=== PATIENT | male | born 1935 | race Caucasian/White ===

== ENCOUNTER 2016-08-02 16:29 | Inpatient (IN) | payer OTHER ==
[~2016-08-02] VITALS: Ht 170.2 cm; Wt 73.0 kg
[~2016-08-02 16:29] MED LIST: ALLOPURINOL100 MG PO; ALLOPURINOL300 MG PO; AMLODIPINE BESY10 MG PO; ASPIR 8181 M1 PO; CALCITRIOL0.25 MCG PO; CIPRO750 MG PO; CONSTULOSE10 GM/15 M PO; COREG12.5 M1 PO; COREG25 M1 PO; DIALYVITE TABL1 EACH PO; GENTAMICIN SULF30 GM TP; HEPARIN PD; IMDUR120 MG PO; IMDUR30 MG PO; IMDUR60 MG PO; LIPITOR40 MG PO; MULTI-DAY PLUS1 EACH PO; NIFEDICAL XL60 MG PO; NORCO 5/3251 TABLET PO; OMEPRAZOLE20 MG PO; OSTERA TABLET1 EACH PO; PROBIOTIC1 EAC1 PO; SENNA PLUS TAB1 EACH PO; SENNA8.6 MG PO; ST. JOSEPH ASPI81 MG PO; SYNTHROID100 MCG PO; SYNTHROID25 MCG PO; SYNTHROID50 MCG PO; VALSARTAN80 MG PO; VELPHORO500 MG PO; VITAMIN D2000 UNIT PO; XANAX0.25 MG PO; ZOLOFT100 MG PO
[2016-08-02 17:35] LABS: HEMATOCRIT 24.6 % (38.0-50.0); MCH 30.9 PG (29.0-34.0); MCHC 32.5 G/DL (30.0-36.0); MEAN PLAT.VOLUME 10.2 uM^3 (9.0-12.4); PLATELET COUNT 100 K/uL (156-360); RBC DIS.WIDTH-CV 16.1 % (11.8-14.6); RBC DIS.WIDTH-SD 52.3 % (39-53); RED BLOOD COUNT 2.59 M/uL (4.00-5.50)
[2016-08-02 17:46] LABS: CHLORIDE 102 mEq/L (99-109); POTASSIUM 4.9 mEq/L (3.7-5.4); SODIUM 138 mEq/L (136-147)
[2016-08-02 17:47] LABS: GLUCOSE 106 mg/dL (70-99)
[2016-08-02 17:49] LABS: ANION GAP 15 MEQ/L (2-14)
[2016-08-02 17:51] LABS: GFR ESTIMATE (CALCULATED) 5 mL/min/
[2016-08-02 17:52] LABS: UREA NITROGEN (BUN) 72 mg/dL (9-23)
[2016-08-02 17:56] LABS: TROP-I INTERPRETATION NEGATIVE; TROPONIN-I 0.03 ng/mL (0.0-0.30)
[2016-08-02 19:44] LABS: ADD MIUA? YES; BILIRUBIN NEGATIVE; BLOOD SMALL; COLOR YELLOW ((YELLOW)); GLUCOSE (STRIP) NEGATIVE; KETONES NEGATIVE; LEUKOCYTES NEGATIVE; NITRITE NEGATIVE; PH, URINE 6.5 (5-8); PROTEIN (STRIP) >=300; SPECIFIC GRAVITY 1.009 (1.000-1.030); UROBILINOGEN 0.2 MG/DL (0.2-1.0)
[2016-08-02 20:06] LABS: BACTERIA NONE SEEN; CASTS NONE SEEN /LPF; CRYSTALS NONE SEEN; EPITHELIAL CELLS RARE; MUCUS NONE SEEN; PATHOLOGICAL CAST NONE SEEN; SMALL ROUND CELL NONE SEEN; UCUL ADDED? NO; WHITE BLOOD CELLS 0-5 /HPF (0-5); YEAST-LIKE CELL NONE SEEN
[2016-08-02 21:42] LABS: SAMPLE HEMOLYSIS CHECK 0; SAMPLE ICTERIC CHECK 0; SAMPLE LIPEMIA CHECK 0
[2016-08-02 22:20] VITALS: BP 132/60
[2016-08-03] LABS: TROP-I INTERPRETATION NEGATIVE; TROPONIN-I 0.03 ng/mL (0.0-0.30)
[2016-08-03 03:17] VITALS: BP 141/67
[2016-08-03 05:35] LABS: HEMATOCRIT 23.3 % (38.0-50.0); MCH 31.2 PG (29.0-34.0); MCV 94.3 FL (86-99); MEAN PLAT.VOLUME 8.9 uM^3 (9.0-12.4); PLATELET COUNT 90 K/uL (156-360); RBC DIS.WIDTH-CV 16.3 % (11.8-14.6); RBC DIS.WIDTH-SD 56.4 % (39-53); RED BLOOD COUNT 2.47 M/uL (4.00-5.50); WHITE BLOOD COUNT 2.8 K/uL (4.1-10.2)
[2016-08-03 06:00] LABS: ALKALINE PHOSPHATASE 36 IU/L (3-129); ANION GAP 15 MEQ/L (2-14); CHLORIDE 103 MEQ/L (99-109); GFR ESTIMATE (CALCULATED) 6 mL/min/; GLUCOSE 99 mg/dL (70-99); POTASSIUM 4.5 MEQ/L (3.7-5.4); SAMPLE HEMOLYSIS CHECK 0; SAMPLE ICTERIC CHECK 0; SAMPLE LIPEMIA CHECK 2; SODIUM 141 MEQ/L (136-147); TOTAL BILIRUBIN 0.2 MG/DL (0.0-1.0); UREA NITROGEN (BUN) 65 mg/dL (9-23)
[2016-08-03 06:06] LABS: TROP-I INTERPRETATION NEGATIVE; TROPONIN-I 0.03 ng/mL (0.0-0.30)
[2016-08-03 07:49] VITALS: BP 158/75
[2016-08-03 22:38] VITALS: BP 156/66
[2016-08-04 05:58] LABS: EOSINOPHIL (%) 5.3 % (0-5); EOSINOPHIL COUNT 0.2 K/uL (0-0.3); IMMATURE GRANULOCYTE (%) 0.8 % (0.0-0.7); MCH 31.1 PG (29.0-34.0); MCV 94.3 FL (86-99); MEAN PLAT.VOLUME 9.8 uM^3 (9.0-12.4); MONOCYTE (%) 8.3 % (3-12); MONOCYTE COUNT 0.3 K/uL (0-0.8); NEUTROPHIL (%) 58.4 % (45-76); NEUTROPHIL COUNT 2.2 K/uL (1.8-6.4); PLATELET COUNT 83 K/uL (156-360); RBC DIS.WIDTH-CV 16.2 % (11.8-14.6); RBC DIS.WIDTH-SD 55.9 % (39-53); RED BLOOD COUNT 2.44 M/uL (4.00-5.50)
[2016-08-04 05:59] LABS: WHITE BLOOD COUNT 3.8 K/uL (4.1-10.2)
[2016-08-04 06:32] LABS: ANION GAP 13 MEQ/L (2-14); CHLORIDE 101 MEQ/L (99-109); GFR ESTIMATE (CALCULATED) 6 mL/min/; GLUCOSE 89 mg/dL (70-99); POTASSIUM 3.9 MEQ/L (3.7-5.4); SAMPLE HEMOLYSIS CHECK 0; SAMPLE ICTERIC CHECK 0; SAMPLE LIPEMIA CHECK 0; SODIUM 138 MEQ/L (136-147); UREA NITROGEN (BUN) 62 mg/dL (9-23)
[2016-08-04 07:57] VITALS: BP 135/73
[2016-08-04 11:04] LABS: ADD MIUA? YES; BILIRUBIN NEGATIVE; BLOOD LARGE; COLOR YELLOW ((YELLOW)); GLUCOSE (STRIP) NEGATIVE; KETONES NEGATIVE; LEUKOCYTES LARGE; NITRITE NEGATIVE; PH, URINE 7.5 (5-8); PROTEIN (STRIP) >=300; UROBILINOGEN 0.2 MG/DL (0.2-1.0)
[2016-08-04 11:49] LABS: SPECIFIC GRAVITY 1.009 (1.000-1.030)
[2016-08-04 13:43] LABS: BACTERIA 1+; CASTS NONE SEEN /LPF; CRYSTALS NONE SEEN; EPITHELIAL CELLS RARE; MUCUS NONE SEEN; WHITE BLOOD CELLS TNTC /HPF (0-5)
[2016-08-04 13:43] LABS: C DIFF TOXIN NEGATIVE (NEGATIVE)
[2016-08-04 13:45] LABS: PROBE CHECK PASS; SPECIMEN PROCESSING CONTROL PASS
[2016-08-04 17:07] VITALS: BP 140/64
[2016-08-04] MEDS ORDERED: CATAPRES-TTS 11 EACH TD (17:51)
[2016-08-04] MEDS ORDERED: VALSARTAN160 MG PO (17:52)
[2016-08-04] MEDS ORDERED: VELPHORO500 MG PO (17:54)
[2016-08-04] MEDS ORDERED: NORVASC10 MG PO (17:59)
[2016-08-04 22:38] VITALS: BP 158/83
[2016-08-05 06:24] LABS: HEMATOCRIT 23.3 % (38.0-50.0); MCH 30.8 PG (29.0-34.0); MCHC 32.6 G/DL (30.0-36.0); MCV 94.3 FL (86-99); MEAN PLAT.VOLUME 9.8 uM^3 (9.0-12.4); NRBC (%) 0.4 /100 WBC (0-0); PLATELET COUNT 101 K/uL (156-360); RBC DIS.WIDTH-CV 16.3 % (11.8-14.6); RBC DIS.WIDTH-SD 56.4 % (39-53); RED BLOOD COUNT 2.47 M/uL (4.00-5.50); WHITE BLOOD COUNT 4.8 K/uL (4.1-10.2)
[2016-08-05 06:35] LABS: EOSINOPHIL (%) 3.5 % (0-5); EOSINOPHIL COUNT 0.2 K/uL (0-0.3); IMMATURE GRANULOCYTE COUNT 0.1 K/uL; LYMPHOCYTE COUNT 1.2 K/uL (1.0-2.8); MONOCYTE (%) 7.7 % (3-12); MONOCYTE COUNT 0.4 K/uL (0-0.8); NEUTROPHIL (%) 62.5 % (45-76)
[2016-08-05 06:53] LABS: ANION GAP 13 MEQ/L (2-14); CHLORIDE 98 MEQ/L (99-109); GFR ESTIMATE (CALCULATED) 6 mL/min/; GLUCOSE 96 mg/dL (70-99); POTASSIUM 3.7 MEQ/L (3.7-5.4); SAMPLE HEMOLYSIS CHECK 0; SAMPLE ICTERIC CHECK 0; SAMPLE LIPEMIA CHECK 0; SODIUM 137 MEQ/L (136-147); UREA NITROGEN (BUN) 56 mg/dL (9-23)
[2016-08-05 08:46] VITALS: BP 161/72
[2016-08-05 13:55] LABS: INTERNAL CONTROL VALID? YES
[2016-08-05 16:07] VITALS: BP 166/77
[2016-08-05 20:09] VITALS: BP 145/78
[2016-08-05 22:14] VITALS: BP 159/70
[2016-08-05 23:35] VITALS: BP 140/80
[2016-08-06 06:38] LABS: ABSOLUTE RETICULOCYTE CT. 0.06 M/uL (0.02-0.08); IMM.RETIC FRACTION 33.9 % (3-19); RETIC HGB EQUIVALENT 26.3 (28-36); RETICULOCYTE COUNT 2.5 % (0.5-1.8)
[2016-08-06 07:03] LABS: ANION GAP 11 MEQ/L (2-14); C-REACTIVE PROTEIN 41.9 MG/L (0-10); CHLORIDE 99 MEQ/L (99-109); GFR ESTIMATE (CALCULATED) 7 mL/min/; GLUCOSE 118 mg/dL (70-99); POTASSIUM 3.6 MEQ/L (3.7-5.4); SAMPLE HEMOLYSIS CHECK 0; SAMPLE ICTERIC CHECK 0; SAMPLE LIPEMIA CHECK 0; SODIUM 138 MEQ/L (136-147); UREA NITROGEN (BUN) 46 mg/dL (9-23)
[2016-08-06 07:55] VITALS: BP 158/64
[2016-08-06 16:18] VITALS: BP 167/80
[2016-08-06 23:05] VITALS: BP 150/52
[2016-08-07 08:00] VITALS: BP 140/68
[2016-08-07 08:59] LABS: HEMATOCRIT 23.3 % (38.0-50.0); MCHC 32.6 G/DL (30.0-36.0); MCV 95.1 FL (86-99); MEAN PLAT.VOLUME 10.4 uM^3 (9.0-12.4); PLATELET COUNT 120 K/uL (156-360); RBC DIS.WIDTH-CV 16.1 % (11.8-14.6); RBC DIS.WIDTH-SD 54.5 % (39-53); RED BLOOD COUNT 2.45 M/uL (4.00-5.50); WHITE BLOOD COUNT 4.5 K/uL (4.1-10.2)
[2016-08-07 09:16] LABS: EOSINOPHIL (%) 5.8 % (0-5); EOSINOPHIL COUNT 0.3 K/uL (0-0.3); IMMATURE GRANULOCYTE (%) 1.8 % (0.0-0.7); IMMATURE GRANULOCYTE COUNT 0.1 K/uL; LYMPHOCYTE COUNT 0.8 K/uL (1.0-2.8); MONOCYTE (%) 5.6 % (3-12); MONOCYTE COUNT 0.3 K/uL (0-0.8); NEUTROPHIL (%) 67.8 % (45-76)
[2016-08-07] MEDS ORDERED: CEFTIN500 MG PO (11:02)
[2016-08-07] MEDS ORDERED: SYNTHROID50 MCG PO (11:03)
[2016-08-07] MEDS ORDERED: ZOLOFT100 MG PO (11:36)
== END 2016-08-07 12:44 | disposition home or self-care (01) | DRG 689 ==
LOC: EME 16:29 → EDOF 19:32 → 5EAST 19:32
PROVIDERS: Emergency Medicine; Internal Medicine; Internal Medicine Hematology & Oncology
PROC: 3E1M39Z Irrigation of Peritoneal Cavity using Dialysate, Percutaneous Approach (ICD-10-PCS; principal; 2016-08-03)
DX: N39.0 Urinary tract infection, site not specified (principal); N18.6 End stage renal disease; I12.0 Hypertensive chronic kidney disease with stage 5 chronic kidney disease or end stage renal disease; F33.9 Major depressive disorder, recurrent, unspecified; I25.810 Atherosclerosis of coronary artery bypass graft(s) without angina pectoris; N25.81 Secondary hyperparathyroidism of renal origin; E03.9 Hypothyroidism, unspecified; D69.6 Thrombocytopenia, unspecified; F41.9 Anxiety disorder, unspecified; D63.1 Anemia in chronic kidney disease; M48.00 Spinal stenosis, site unspecified; I73.9 Peripheral vascular disease, unspecified; M10.9 Gout, unspecified; Z95.5 Presence of coronary angioplasty implant and graft; I25.2 Old myocardial infarction; Z85.46 Personal history of malignant neoplasm of prostate
CPT/HCPCS: 70450; 72131; 74000; 76536; 76705; 80048; 80053; 80069; 81003; 82272; 82607; 82728; 82746; 83630; 84100; 84439; 84443; 84466; 84484; 85025; 85027; 85045; 85651; 86140; 87086; 87493; 87506; 93005; 93925; 94640; 99202; 99281; 99285; G0378; J0696; J0881; J1580; J1644; J1756; J7030; J7050; S0028

== ENCOUNTER 2016-10-05 09:39 | Day surgery (SDC) | payer OTHER ==
[~2016-10-05] VITALS: Ht 170.2 cm; Wt 69.4 kg
[~2016-10-05 09:39] MED LIST changes: +CATAPRES-TTS 11 EACH TD; +CEFTIN500 MG PO; +LEVO-T75 MCG PO; +NORVASC10 MG PO; +PROCARDIA XL60 MG PO; +ROCALTROL0.25 MCG PO; +VALSARTAN160 MG PO
[2016-10-05 10:31] VITALS: BP 198/91
[2016-10-05 10:43] LABS: HEMATOCRIT 32.3 % (38.0-50.0); MCV 95.6 FL (86-99)
[2016-10-05 11:05] LABS: ANION GAP 15 MEQ/L (2-14); CHLORIDE 101 MEQ/L (99-109); POTASSIUM 4.3 MEQ/L (3.7-5.4); SAMPLE HEMOLYSIS CHECK 0; SAMPLE ICTERIC CHECK 0; SAMPLE LIPEMIA CHECK 0; SODIUM 140 MEQ/L (136-147)
[2016-10-05 11:11] LABS: GFR ESTIMATE (CALCULATED) 5 mL/min/; GLUCOSE 102 mg/dL (70-99); UREA NITROGEN (BUN) 68 mg/dL (9-23)
[2016-10-05 12:21] LABS: METH RESISTANT S AUREUS PCR NEGATIVE (NEGATIVE); PROBE CHECK PASS; SPECIMEN PROCESSING CONTROL PASS
[2016-10-05] MEDS ORDERED: NORCO 5/3251 TABLET PO (13:03)
[2016-10-05 13:25] VITALS: BP 182/87
[2016-10-05 14:25] VITALS: BP 177/80
== END 2016-10-05 14:25 | disposition home or self-care (01) ==
LOC: SDC 09:39
PROVIDERS: Surgery
DX: T85.621A Displacement of intraperitoneal dialysis catheter, initial encounter (principal); T85.828A Fibrosis due to other internal prosthetic devices, implants and grafts, initial encounter; T85.898A Other specified complication of other internal prosthetic devices, implants and grafts, initial encounter; Y83.1 Surgical operation with implant of artificial internal device as the cause of abnormal reaction of the patient, or of later complication, without mention of misadventure at the time of the procedure; K66.0 Peritoneal adhesions (postprocedural) (postinfection); I12.0 Hypertensive chronic kidney disease with stage 5 chronic kidney disease or end stage renal disease; N18.6 End stage renal disease; Z99.2 Dependence on renal dialysis; D64.9 Anemia, unspecified; E03.9 Hypothyroidism, unspecified; Z79.82 Long term (current) use of aspirin; K21.9 Gastro-esophageal reflux disease without esophagitis; I25.10 Atherosclerotic heart disease of native coronary artery without angina pectoris; Z95.5 Presence of coronary angioplasty implant and graft; I25.2 Old myocardial infarction; Z88.8 Allergy status to other drugs, medicaments and biological substances
CPT/HCPCS: 80048; 85014; 85018; 87641; 93005; J0330; J0690; J1100; J2405; J2710; J3010; S0020

== ENCOUNTER 2017-02-19 22:49 | Emergency (ER) | payer OTHER ==
[~2017-02-19] VITALS: Ht 170.2 cm; Wt 62.8 kg
[2017-02-19 23:32] LABS: MCH 31.7 PG (29.0-34.0); MCHC 33.2 G/DL (30.0-36.0); MCV 95.2 FL (86-99); MEAN PLAT.VOLUME 10.3 uM^3 (9.0-12.4); PLATELET COUNT 169 K/uL (156-360); RBC DIS.WIDTH-CV 15.9 % (11.8-14.6); RBC DIS.WIDTH-SD 56.1 % (39-53); RED BLOOD COUNT 3.57 M/uL (4.00-5.50); WHITE BLOOD COUNT 7.3 K/uL (4.1-10.2)
[2017-02-19 23:43] LABS: CHLORIDE 99 mEq/L (99-109); POTASSIUM 3.8 mEq/L (3.7-5.4); SODIUM 139 mEq/L (136-147)
[2017-02-19 23:45] LABS: GLUCOSE 148 mg/dL (70-99)
[2017-02-19 23:47] LABS: ANION GAP 19 MEQ/L (2-14); TOTAL BILIRUBIN 0.5 mg/dL (0.0-1.0)
[2017-02-19 23:49] LABS: ALKALINE PHOSPHATASE 48 IU/L (3-129); GFR ESTIMATE (CALCULATED) 6 mL/min/
[2017-02-19 23:50] LABS: UREA NITROGEN (BUN) 69 mg/dL (9-23)
[2017-02-19 23:53] LABS: LIPASE 49 U/L (1.0-51.0); TROP-I INTERPRETATION NEGATIVE; TROPONIN-I 0.03 ng/mL (0.0-0.30)
[2017-02-20 04:15] VITALS: BP 159/82
== END 2017-02-20 04:16 | disposition short-term general hospital (02) ==
LOC: EME → EDBD 22:49 → EME 02-20 04:16
PROVIDERS: Emergency Medicine
DX: K66.8 Other specified disorders of peritoneum (principal); R11.2 Nausea with vomiting, unspecified; E87.2 Acidosis; I12.0 Hypertensive chronic kidney disease with stage 5 chronic kidney disease or end stage renal disease; N18.6 End stage renal disease; Z99.2 Dependence on renal dialysis; D64.9 Anemia, unspecified; R18.8 Other ascites; K57.30 Diverticulosis of large intestine without perforation or abscess without bleeding; K80.20 Calculus of gallbladder without cholecystitis without obstruction; Z87.442 Personal history of urinary calculi; Z95.1 Presence of aortocoronary bypass graft; Z79.82 Long term (current) use of aspirin; Z87.891 Personal history of nicotine dependence
CPT/HCPCS: 71010; 74176; 80053; 81003; 83605; 83690; 84484; 85027; 87040; 93005; 99281; 99285; J2270; J2405; J2543; J2765; J7030

== ENCOUNTER → 2017-04-03 | Outpatient (CLI) | payer OTHER ==
[2017-04-03 10:26] LABS: HEMATOCRIT 36.8 % (38.0-50.0); MCH 31.4 PG (29.0-34.0); MCHC 31.5 G/DL (30.0-36.0); MCV 99.7 FL (86-99); MEAN PLAT.VOLUME 10.4 uM^3 (9.0-12.4); PLATELET COUNT 169 K/uL (156-360); RBC DIS.WIDTH-CV 14.6 % (11.8-14.6); RBC DIS.WIDTH-SD 53.2 % (39-53); RED BLOOD COUNT 3.69 M/uL (4.00-5.50); WHITE BLOOD COUNT 6.5 K/uL (4.1-10.2)
== END | disposition home or self-care (01) ==
LOC: AMB 08:30
PROVIDERS: Physician Assistant
PROC: 02PYX3Z Removal of Infusion Device from Great Vessel, External Approach (ICD-10-PCS; principal; 2017-04-03)
DX: Z45.2 Encounter for adjustment and management of vascular access device (principal); N18.9 Chronic kidney disease, unspecified
CPT/HCPCS: 80048; 80076; 85027; 99213

== ENCOUNTER 2017-04-22 12:57 | Inpatient (IN) | payer OTHER ==
[~2017-04-22] VITALS: Ht 170.2 cm; Wt 80.8 kg
[~2017-04-22 12:57] MED LIST changes: +K-DUR20 MEQ PO; +ZOFRAN4 MG PO
[2017-04-22 13:35] VITALS: BP 119/63
[2017-04-22 14:30] LABS: HEMATOCRIT 43.2 % (38.0-50.0); MCH 29.8 PG (29.0-34.0); MCHC 30.8 G/DL (30.0-36.0); MCV 96.9 FL (86-99); MEAN PLAT.VOLUME 10.1 uM^3 (9.0-12.4); PLATELET COUNT 142 K/uL (156-360); RBC DIS.WIDTH-CV 14.6 % (11.8-14.6); WHITE BLOOD COUNT 5.1 K/uL (4.1-10.2)
[2017-04-22 14:43] LABS: RED BLOOD COUNT 4.46 M/uL (4.00-5.50)
[2017-04-22 14:49] LABS: ANION GAP 10 MEQ/L (2-14); CHLORIDE 97 MEQ/L (99-109); POTASSIUM 5.4 MEQ/L (3.7-5.4); SAMPLE HEMOLYSIS CHECK 0; SAMPLE ICTERIC CHECK 0; SAMPLE LIPEMIA CHECK 0; SODIUM 134 MEQ/L (136-147)
[2017-04-22 14:55] LABS: GFR ESTIMATE (CALCULATED) 8 mL/min/; GLUCOSE 111 mg/dL (70-99); UREA NITROGEN (BUN) 20 mg/dL (9-23)
[2017-04-22 15:05] LABS: METH RESISTANT S AUREUS PCR NEGATIVE (NEGATIVE)
[2017-04-22 15:06] LABS: PROBE CHECK PASS; SPECIMEN PROCESSING CONTROL PASS
[2017-04-22 20:00] VITALS: BP 118/68
[2017-04-22 20:14] VITALS: BP 118/68
[2017-04-22 23:15] VITALS: BP 130/66
[2017-04-23] VITALS (8 sets, daily range): BP systolic 78–112; BP diastolic 50–60
[2017-04-23 06:49] LABS: HEMATOCRIT 32.3 % (38.0-50.0); MCH 31.3 PG (29.0-34.0); MCHC 32.2 G/DL (30.0-36.0); MCV 97.3 FL (86-99); MEAN PLAT.VOLUME 10.6 uM^3 (9.0-12.4); PLATELET COUNT 101 K/uL (156-360); RBC DIS.WIDTH-CV 14.8 % (11.8-14.6); RBC DIS.WIDTH-SD 53.4 % (39-53); WHITE BLOOD COUNT 5.9 K/uL (4.1-10.2)
[2017-04-23 06:50] LABS: RED BLOOD COUNT 3.32 M/uL (4.00-5.50)
[2017-04-23 07:01] LABS: ALKALINE PHOSPHATASE 58 IU/L (3-129); ANION GAP 13 MEQ/L (2-14); CHLORIDE 104 MEQ/L (99-109); GFR ESTIMATE (CALCULATED) 8 mL/min/; GLUCOSE 96 mg/dL (70-99); LIPASE 6 U/L (1.0-51.0); MAGNESIUM 1.3 mg/dl (1.3-2.7); SAMPLE HEMOLYSIS CHECK 0; SAMPLE ICTERIC CHECK 0; SAMPLE LIPEMIA CHECK 0; SODIUM 139 MEQ/L (136-147); TOTAL BILIRUBIN 0.3 MG/DL (0.0-1.0); UREA NITROGEN (BUN) 20 mg/dL (9-23)
[2017-04-23 10:29] LABS: POINT-OF-CARE METER ID UU13113725
[2017-04-24] VITALS: BP 98/56
[2017-04-24 04:00] VITALS: BP 105/55
[2017-04-24 06:43] LABS: ANION GAP 8 MEQ/L (2-14); CHLORIDE 107 MEQ/L (99-109); GFR ESTIMATE (CALCULATED) 7 mL/min/; GLUCOSE 95 mg/dL (70-99); POTASSIUM 4.9 MEQ/L (3.7-5.4); SAMPLE HEMOLYSIS CHECK 0; SAMPLE ICTERIC CHECK 0; SAMPLE LIPEMIA CHECK 0; SODIUM 139 MEQ/L (136-147); UREA NITROGEN (BUN) 22 mg/dL (9-23)
[2017-04-24 06:47] LABS: HEMATOCRIT 26.9 % (38.0-50.0); MCH 30.8 PG (29.0-34.0); MCHC 31.6 G/DL (30.0-36.0); MCV 97.5 FL (86-99); RBC DIS.WIDTH-CV 15.2 % (11.8-14.6); RED BLOOD COUNT 2.76 M/uL (4.00-5.50); WHITE BLOOD COUNT 4.3 K/uL (4.1-10.2)
[2017-04-24 07:01] LABS: MEAN PLAT.VOLUME 9.6 uM^3 (9.0-12.4)
[2017-04-24 07:07] LABS: PLATELET COUNT 64 K/uL (156-360)
[2017-04-24 08:00] VITALS: BP 139/90
[2017-04-24 11:05] LABS: IRON 22 MCG/DL (35-150)
[2017-04-24 11:46] VITALS: BP 138/71
[2017-04-24 15:53] VITALS: BP 139/75
[2017-04-24 19:06] VITALS: BP 136/74
[2017-04-25 06:12] VITALS: BP 129/61
[2017-04-25 07:35] VITALS: BP 126/77
[2017-04-25 11:21] VITALS: BP 138/83
== END 2017-04-25 13:45 | disposition home or self-care (01) | DRG 417 ==
LOC: SDC 12:57 → ENRESERV 18:01 → 5EAST 18:03 → 2SOUTH 18:03 → ENRESERV 18:04 → 2EAST 19:59 → ENRESERV 20:07 → 5EAST 20:54
PROVIDERS: Internal Medicine; Surgery
PROC: BF11YZZ Fluoroscopy of Biliary and Pancreatic Ducts using Other Contrast (ICD-10-PCS; principal; 2017-04-22)
PROC: 0FT44ZZ Resection of Gallbladder, Percutaneous Endoscopic Approach (ICD-10-PCS; principal; 2017-04-22)
PROC: 3E1M39Z Irrigation of Peritoneal Cavity using Dialysate, Percutaneous Approach (ICD-10-PCS; 2017-04-23)
DX: K80.10 Calculus of gallbladder with chronic cholecystitis without obstruction (principal); N18.6 End stage renal disease; K66.0 Peritoneal adhesions (postprocedural) (postinfection); I12.0 Hypertensive chronic kidney disease with stage 5 chronic kidney disease or end stage renal disease; Z99.2 Dependence on renal dialysis; D63.1 Anemia in chronic kidney disease; E03.9 Hypothyroidism, unspecified; D69.6 Thrombocytopenia, unspecified; E87.6 Hypokalemia; Z95.1 Presence of aortocoronary bypass graft; Z95.5 Presence of coronary angioplasty implant and graft; M10.9 Gout, unspecified; E78.5 Hyperlipidemia, unspecified; E83.51 Hypocalcemia; E86.0 Dehydration; E87.5 Hyperkalemia; F41.1 Generalized anxiety disorder; F32.9 Major depressive disorder, single episode, unspecified; Z85.46 Personal history of malignant neoplasm of prostate; I25.2 Old myocardial infarction; I25.10 Atherosclerotic heart disease of native coronary artery without angina pectoris; M19.90 Unspecified osteoarthritis, unspecified site; Z87.440 Personal history of urinary (tract) infections; I95.89 Other hypotension
CPT/HCPCS: 71010; 74300; 80048; 80053; 80069; 82948; 83540; 83690; 83735; 84100; 84466; 85027; 87641; 88304; C1769; J0610; J0881; J1170; J1644; J1756; J1815; J2270; J2405; J2710; J3010; J3230; J7030; J7040; J7042; J7050; P9045; S0020

== ENCOUNTER 2017-05-09 13:28 | Inpatient (IN) | payer OTHER ==
[~2017-05-09] VITALS: Ht 170.2 cm; Wt 53.2 kg
[2017-05-09 16:12] LABS: MCH 29.6 PG (29.0-34.0); MCHC 33.8 G/DL (30.0-36.0); MCV 87.7 FL (86-99); PLATELET COUNT 171 K/uL (156-360); RBC DIS.WIDTH-CV 16.8 % (11.8-14.6); RBC DIS.WIDTH-SD 54.2 % (39-53); RED BLOOD COUNT 3.65 M/uL (4.00-5.50); WHITE BLOOD COUNT 10.3 K/uL (4.1-10.2)
[2017-05-09 16:21] LABS: CHLORIDE 93 mEq/L (99-109); SODIUM 133 mEq/L (136-147)
[2017-05-09 16:23] LABS: GLUCOSE 80 mg/dL (70-99)
[2017-05-09 16:24] LABS: ANION GAP 14 MEQ/L (2-14)
[2017-05-09 16:25] LABS: TOTAL BILIRUBIN 0.4 mg/dL (0.0-1.0)
[2017-05-09 16:27] LABS: ALKALINE PHOSPHATASE 120 IU/L (3-129); GFR ESTIMATE (CALCULATED) 7 mL/min/
[2017-05-09 16:28] LABS: UREA NITROGEN (BUN) 34 mg/dL (9-23)
[2017-05-09 17:05] LABS: DIRECT BILIRUBIN 0.2 mg/dL (0.0-0.3)
[2017-05-09 17:06] LABS: LIPASE 4 U/L (1.0-51.0)
[2017-05-09 17:10] LABS: TROP-I INTERPRETATION NEGATIVE; TROPONIN-I 0.25 ng/mL (0.0-0.30)
[2017-05-09 17:26] LABS: PROTHROMBIN TIME 11.8 SEC (10.2-12.9)
[2017-05-09 17:28] LABS: PTT 26.8 SEC (25-37)
[2017-05-09] MEDS ORDERED: LO-DOSE ASPIRIN81 M1 PO (18:52)
[2017-05-09] MEDS ORDERED: DIALYVITE TABL1 EACH PO (18:53)
[2017-05-09] MEDS ORDERED: ROCALTROL0.25 MCG PO (18:53)
[2017-05-09] MEDS ORDERED: ZINC50 M1 PO (18:54)
[2017-05-09] MEDS ORDERED: SYNTHROID75 MCG PO (18:54)
[2017-05-09] MEDS ORDERED: VITAMIN D31000 UNI2 PO (18:54)
[2017-05-09] MEDS ORDERED: ASCORBIC ACID500 M3 PO (18:54)
[2017-05-09] MEDS ORDERED: ZOFRAN ODT8 MG PO (18:55)
[2017-05-09 21:10] VITALS: BP 127/70
[2017-05-10 05:58] LABS: HEMATOCRIT 26.6 % (38.0-50.0); MCH 29.4 PG (29.0-34.0); MCHC 32.7 G/DL (30.0-36.0); MCV 89.9 FL (86-99); MEAN PLAT.VOLUME 9.7 uM^3 (9.0-12.4); PLATELET COUNT 144 K/uL (156-360); RBC DIS.WIDTH-CV 17.2 % (11.8-14.6); RBC DIS.WIDTH-SD 56.4 % (39-53); RED BLOOD COUNT 2.96 M/uL (4.00-5.50); WHITE BLOOD COUNT 7.3 K/uL (4.1-10.2)
[2017-05-10 06:20] LABS: ANION GAP 10 MEQ/L (2-14); CHLORIDE 95 MEQ/L (99-109); GFR ESTIMATE (CALCULATED) 7 mL/min/; GLUCOSE 65 mg/dL (70-99); POTASSIUM 3.1 MEQ/L (3.7-5.4); SAMPLE HEMOLYSIS CHECK 0; SAMPLE ICTERIC CHECK 0; SAMPLE LIPEMIA CHECK 0; SODIUM 131 MEQ/L (136-147); UREA NITROGEN (BUN) 36 mg/dL (9-23)
[2017-05-10 06:52] VITALS: BP 130/74
[2017-05-10 15:05] VITALS: BP 118/68
[2017-05-11 05:52] LABS: MCH 28.8 PG (29.0-34.0); MCHC 31.9 G/DL (30.0-36.0); MCV 90.3 FL (86-99); MEAN PLAT.VOLUME 9.9 uM^3 (9.0-12.4); PLATELET COUNT 150 K/uL (156-360); RBC DIS.WIDTH-CV 17.2 % (11.8-14.6); RED BLOOD COUNT 2.99 M/uL (4.00-5.50); WHITE BLOOD COUNT 5.9 K/uL (4.1-10.2)
[2017-05-11 07:05] LABS: ANION GAP 10 MEQ/L (2-14); CHLORIDE 100 MEQ/L (99-109); GFR ESTIMATE (CALCULATED) 8 mL/min/; IRON 48 MCG/DL (35-150); MAGNESIUM 1.8 mg/dl (1.3-2.7); POTASSIUM 3.2 MEQ/L (3.7-5.4); SAMPLE HEMOLYSIS CHECK 0; SAMPLE ICTERIC CHECK 0; SAMPLE LIPEMIA CHECK 0; SODIUM 135 MEQ/L (136-147); UREA NITROGEN (BUN) 36 mg/dL (9-23)
[2017-05-11 07:18] LABS: GLUCOSE 113 mg/dL (70-99)
[2017-05-11 07:51] VITALS: BP 92/58
[2017-05-11 12:22] LABS: TYPE OF FLUID PERITONEAL
[2017-05-11 12:58] LABS: RED CELL AREA COUNTED 18; RED CELL DILUTION 1
[2017-05-11 13:01] LABS: BODY FLUID RBC'S 8 /MM^3 (0-100); BODY FLUID WBC'S 24 /MM^3 (0-500); WBC AREA COUNTED 18; WBC DILUTION 1; WHITE CELL RAW COUNT 44
[2017-05-11 13:27] LABS: BODY FLUID EOSINOPHILS 1 % (0-25); MONO RAW COUNT 13; MONONUCLEAR WBC'S 13 %; POLY RAW COUNT 86; POLYNUCLEAR WBC'S 86 % (0-25)
[2017-05-11 16:42] VITALS: BP 121/68
[2017-05-11 23:01] VITALS: BP 120/65
[2017-05-12 06:53] LABS: MCH 28.6 PG (29.0-34.0); MCHC 31.9 G/DL (30.0-36.0); MCV 89.7 FL (86-99); MEAN PLAT.VOLUME 9.4 uM^3 (9.0-12.4); PLATELET COUNT 121 K/uL (156-360); RBC DIS.WIDTH-CV 17.4 % (11.8-14.6); RBC DIS.WIDTH-SD 57.4 % (39-53); RED BLOOD COUNT 3.01 M/uL (4.00-5.50); WHITE BLOOD COUNT 4.4 K/uL (4.1-10.2)
[2017-05-12 08:01] VITALS: BP 108/58
[2017-05-12 08:47] LABS: ANION GAP 9 MEQ/L (2-14); CHLORIDE 104 MEQ/L (99-109); GFR ESTIMATE (CALCULATED) 8 mL/min/; GLUCOSE 115 mg/dL (70-99); SAMPLE HEMOLYSIS CHECK 0; SAMPLE ICTERIC CHECK 0; SAMPLE LIPEMIA CHECK 0; SODIUM 138 MEQ/L (136-147); UREA NITROGEN (BUN) 32 mg/dL (9-23)
[2017-05-12 08:59] LABS: POTASSIUM 3.9 MEQ/L (3.7-5.4)
[2017-05-12 16:19] VITALS: BP 111/62
[2017-05-12 21:25] LABS: POINT-OF-CARE METER ID UU13113774
[2017-05-12 22:58] VITALS: BP 141/75
[2017-05-13 00:21] VITALS: BP 107/64
[2017-05-13 05:51] LABS: POINT-OF-CARE METER ID UU13113725
[2017-05-13 06:34] LABS: HEMATOCRIT 28.9 % (38.0-50.0); MCH 29.7 PG (29.0-34.0); MCHC 32.9 G/DL (30.0-36.0); MCV 90.3 FL (86-99); MEAN PLAT.VOLUME 10.1 uM^3 (9.0-12.4); PLATELET COUNT 138 K/uL (156-360); RBC DIS.WIDTH-SD 58.9 % (39-53); WHITE BLOOD COUNT 4.3 K/uL (4.1-10.2)
[2017-05-13 06:58] LABS: ANION GAP 9 MEQ/L (2-14); CHLORIDE 107 MEQ/L (99-109); GFR ESTIMATE (CALCULATED) 8 mL/min/; GLUCOSE 108 mg/dL (70-99); SAMPLE HEMOLYSIS CHECK 0; SAMPLE ICTERIC CHECK 0; SAMPLE LIPEMIA CHECK 0; SODIUM 139 MEQ/L (136-147); UREA NITROGEN (BUN) 35 mg/dL (9-23)
[2017-05-13 07:24] VITALS: BP 136/70
[2017-05-13 11:44] LABS: POINT-OF-CARE METER ID UU13113774
[2017-05-13 13:51] VITALS: BP 140/71
[2017-05-13 14:38] VITALS: BP 140/71
[2017-05-13 16:53] LABS: POINT-OF-CARE METER ID UU13113725
[2017-05-13 18:30] VITALS: BP 141/79
[2017-05-13 22:10] LABS: POINT-OF-CARE METER ID UU13113774
[2017-05-13 23:37] VITALS: BP 142/71
[2017-05-14 06:14] LABS: POINT-OF-CARE METER ID UU13113774
[2017-05-14 06:35] LABS: HEMATOCRIT 28.4 % (38.0-50.0); MCH 28.9 PG (29.0-34.0); MCHC 31.7 G/DL (30.0-36.0); MCV 91.3 FL (86-99); MEAN PLAT.VOLUME 10.2 uM^3 (9.0-12.4); PLATELET COUNT 119 K/uL (156-360); RBC DIS.WIDTH-SD 59.5 % (39-53); RED BLOOD COUNT 3.11 M/uL (4.00-5.50); WHITE BLOOD COUNT 8.4 K/uL (4.1-10.2)
[2017-05-14 07:08] LABS: ANION GAP 9 MEQ/L (2-14); CHLORIDE 108 MEQ/L (99-109); GFR ESTIMATE (CALCULATED) 9 mL/min/; GLUCOSE 129 mg/dL (70-99); SAMPLE HEMOLYSIS CHECK 0; SAMPLE ICTERIC CHECK 0; SAMPLE LIPEMIA CHECK 0; SODIUM 139 MEQ/L (136-147); UREA NITROGEN (BUN) 33 mg/dL (9-23)
[2017-05-14 07:41] VITALS: BP 140/80
[2017-05-14 11:18] LABS: POINT-OF-CARE METER ID UU13113725
[2017-05-14 16:03] LABS: POINT-OF-CARE METER ID UU13113725
[2017-05-14 16:30] VITALS: BP 138/78
[2017-05-14 21:12] LABS: POINT-OF-CARE METER ID UU13113774
[2017-05-14 23:41] VITALS: BP 110/76
[2017-05-15 06:27] LABS: POINT-OF-CARE METER ID UU13113774
[2017-05-15 08:15] VITALS: BP 99/63
[2017-05-15 09:31] LABS: EOSINOPHIL (%) 2.7 % (0-5); EOSINOPHIL COUNT 0.2 K/uL (0-0.3); HEMATOCRIT 29.3 % (38.0-50.0); IMMATURE GRANULOCYTE (%) 1.1 % (0.0-0.7); IMMATURE GRANULOCYTE COUNT 0.1 K/uL; INSTRUMENT ABS NEUTROPHIL CT 4.7 K/uL; MCHC 32.8 G/DL (30.0-36.0); MCV 91.6 FL (86-99); MEAN PLAT.VOLUME 9.9 uM^3 (9.0-12.4); MONOCYTE (%) 7.1 % (3-12); MONOCYTE COUNT 0.5 K/uL (0-0.8); NEUTROPHIL (%) 73.6 % (45-76); NEUTROPHIL COUNT 4.7 K/uL (1.8-6.4); PLATELET COUNT 105 K/uL (156-360); RBC DIS.WIDTH-CV 18.1 % (11.8-14.6); RBC DIS.WIDTH-SD 60.4 % (39-53); WHITE BLOOD COUNT 6.3 K/uL (4.1-10.2)
[2017-05-15 10:04] LABS: ALKALINE PHOSPHATASE 96 IU/L (3-129); ANION GAP 8 MEQ/L (2-14); CHLORIDE 105 MEQ/L (99-109); GFR ESTIMATE (CALCULATED) 10 mL/min/; GLUCOSE 113 mg/dL (70-99); POTASSIUM 4.9 MEQ/L (3.7-5.4); SAMPLE HEMOLYSIS CHECK 0; SAMPLE ICTERIC CHECK 0; SAMPLE LIPEMIA CHECK 0; SODIUM 137 MEQ/L (136-147); TOTAL BILIRUBIN 0.3 MG/DL (0.0-1.0); UREA NITROGEN (BUN) 30 mg/dL (9-23)
[2017-05-15 11:28] LABS: POINT-OF-CARE METER ID UU13113774
[2017-05-15 11:30] VITALS: BP 121/73
[2017-05-15 16:45] VITALS: BP 113/78
[2017-05-15 16:54] LABS: POINT-OF-CARE METER ID UU13113774
[2017-05-15 23:35] VITALS: BP 109/60
[2017-05-16 05:56] LABS: EOSINOPHIL (%) 2.4 % (0-5); EOSINOPHIL COUNT 0.1 K/uL (0-0.3); IMMATURE GRANULOCYTE (%) 1.5 % (0.0-0.7); IMMATURE GRANULOCYTE COUNT 0.1 K/uL; INSTRUMENT ABS NEUTROPHIL CT 4.1 K/uL; LYMPHOCYTE COUNT 1.1 K/uL (1.0-2.8); MCHC 32.4 G/DL (30.0-36.0); MCV 89.6 FL (86-99); MEAN PLAT.VOLUME 10.2 uM^3 (9.0-12.4); MONOCYTE (%) 8.1 % (3-12); MONOCYTE COUNT 0.5 K/uL (0-0.8); NEUTROPHIL (%) 69.7 % (45-76); NEUTROPHIL COUNT 4.1 K/uL (1.8-6.4); PLATELET COUNT 85 K/uL (156-360); RBC DIS.WIDTH-CV 17.9 % (11.8-14.6); RBC DIS.WIDTH-SD 59.1 % (39-53); RED BLOOD COUNT 2.79 M/uL (4.00-5.50); WHITE BLOOD COUNT 5.9 K/uL (4.1-10.2)
[2017-05-16 05:59] LABS: POINT-OF-CARE METER ID UU13113774
[2017-05-16 07:39] VITALS: BP 104/59
[2017-05-16 07:41] LABS: ALKALINE PHOSPHATASE 82 IU/L (3-129); ANION GAP 9 MEQ/L (2-14); CHLORIDE 105 MEQ/L (99-109); GFR ESTIMATE (CALCULATED) 10 mL/min/; POTASSIUM 4.5 MEQ/L (3.7-5.4); SAMPLE HEMOLYSIS CHECK 0; SAMPLE ICTERIC CHECK 0; SAMPLE LIPEMIA CHECK 0; SODIUM 139 MEQ/L (136-147); TOTAL BILIRUBIN 0.3 MG/DL (0.0-1.0); UREA NITROGEN (BUN) 30 mg/dL (9-23)
[2017-05-16 07:42] LABS: GLUCOSE 79 mg/dL (70-99)
[2017-05-16 09:20] LABS: INTACT PARATHYROID HORMONE 144 pg/mL (10-69)
[2017-05-16 11:22] LABS: POINT-OF-CARE METER ID UU13113725
[2017-05-16 15:58] VITALS: BP 112/67
[2017-05-16 16:33] LABS: POINT-OF-CARE METER ID UU13113774
[2017-05-16 19:30] VITALS: BP 133/82
[2017-05-16 21:25] LABS: POINT-OF-CARE METER ID UU13113774
[2017-05-17 03:57] VITALS: BP 122/69
[2017-05-17 06:35] LABS: POINT-OF-CARE METER ID UU13113725
[2017-05-17 06:42] LABS: EOSINOPHIL (%) 2.5 % (0-5); EOSINOPHIL COUNT 0.1 K/uL (0-0.3); HEMATOCRIT 26.4 % (38.0-50.0); IMMATURE GRANULOCYTE (%) 1.4 % (0.0-0.7); IMMATURE GRANULOCYTE COUNT 0.1 K/uL; INSTRUMENT ABS NEUTROPHIL CT 3.7 K/uL; LYMPHOCYTE COUNT 0.7 K/uL (1.0-2.8); MCH 28.7 PG (29.0-34.0); MCHC 32.6 G/DL (30.0-36.0); MEAN PLAT.VOLUME 10.7 uM^3 (9.0-12.4); MONOCYTE (%) 9.2 % (3-12); MONOCYTE COUNT 0.5 K/uL (0-0.8); NEUTROPHIL (%) 72.5 % (45-76); NEUTROPHIL COUNT 3.7 K/uL (1.8-6.4); PLATELET COUNT 95 K/uL (156-360); RBC DIS.WIDTH-CV 17.9 % (11.8-14.6); RBC DIS.WIDTH-SD 57.7 % (39-53); WHITE BLOOD COUNT 5.1 K/uL (4.1-10.2)
[2017-05-17 08:04] VITALS: BP 128/60
[2017-05-17 09:21] LABS: ANION GAP 7 MEQ/L (2-14); CHLORIDE 100 MEQ/L (99-109); GFR ESTIMATE (CALCULATED) 11 mL/min/; POTASSIUM 3.9 MEQ/L (3.7-5.4); SAMPLE HEMOLYSIS CHECK 0; SAMPLE ICTERIC CHECK 0; SAMPLE LIPEMIA CHECK 0; SODIUM 134 MEQ/L (136-147); UREA NITROGEN (BUN) 28 mg/dL (9-23)
[2017-05-17 09:22] LABS: GLUCOSE 104 mg/dL (70-99)
[2017-05-17 15:30] VITALS: BP 171/71
[2017-05-17 16:58] LABS: POINT-OF-CARE METER ID UU13113774
[2017-05-17 21:23] LABS: POINT-OF-CARE METER ID UU13113774
[2017-05-17 22:42] VITALS: BP 152/82
[2017-05-18] VITALS (11 sets, daily range): BP systolic 98–136; BP diastolic 60–82
[2017-05-18 06:26] LABS: POINT-OF-CARE METER ID UU13113725
[2017-05-18 09:41] LABS: EOSINOPHIL (%) 1.4 % (0-5); EOSINOPHIL COUNT 0.1 K/uL (0-0.3); HEMATOCRIT 21.2 % (38.0-50.0); IMMATURE GRANULOCYTE COUNT 0.1 K/uL; INSTRUMENT ABS NEUTROPHIL CT 4.6 K/uL; LYMPHOCYTE COUNT 0.9 K/uL (1.0-2.8); MCH 29.2 PG (29.0-34.0); MCV 88.3 FL (86-99); MEAN PLAT.VOLUME 10.3 uM^3 (9.0-12.4); MONOCYTE (%) 9.8 % (3-12); MONOCYTE COUNT 0.6 K/uL (0-0.8); NEUTROPHIL (%) 73.6 % (45-76); NEUTROPHIL COUNT 4.6 K/uL (1.8-6.4); PLATELET COUNT 106 K/uL (156-360); RBC DIS.WIDTH-CV 17.8 % (11.8-14.6); RBC DIS.WIDTH-SD 56.9 % (39-53); WHITE BLOOD COUNT 6.2 K/uL (4.1-10.2)
[2017-05-18 10:21] LABS: ALKALINE PHOSPHATASE 64 IU/L (3-129); ANION GAP 9 MEQ/L (2-14); CHLORIDE 99 MEQ/L (99-109); GFR ESTIMATE (CALCULATED) 10 mL/min/; GLUCOSE 101 mg/dL (70-99); MAGNESIUM 1.7 mg/dl (1.3-2.7); POTASSIUM 3.9 MEQ/L (3.7-5.4); PREALBUMIN 11.8 mg/dL (10-40); SAMPLE HEMOLYSIS CHECK 0; SAMPLE ICTERIC CHECK 0; SAMPLE LIPEMIA CHECK 0; SODIUM 133 MEQ/L (136-147); TOTAL BILIRUBIN 0.3 MG/DL (0.0-1.0); UREA NITROGEN (BUN) 32 mg/dL (9-23)
[2017-05-18 10:27] LABS: MCV 88.2 FL (86-99)
[2017-05-18 13:23] LABS: ANTI-HEPATITIS B CORE (TOTAL) Nonreactive; HBCT INDEX 0.04
[2017-05-18 13:23] LABS: HBSG INDEX 0.22
[2017-05-18 13:24] LABS: AHBS INDEX 10.88; HPCA INDEX 0.14
[2017-05-18 14:02] LABS: HEPATITIS B SURFACE ANTIBODY EQUIVOCAL
[2017-05-18 17:02] LABS: POINT-OF-CARE METER ID UU13113774
[2017-05-18 20:51] LABS: POINT-OF-CARE METER ID UU13113774
[2017-05-19 06:13] LABS: POINT-OF-CARE METER ID UU13113774
[2017-05-19 06:57] LABS: ANION GAP 9 MEQ/L (2-14); CHLORIDE 102 MEQ/L (99-109); GFR ESTIMATE (CALCULATED) 18 mL/min/; GLUCOSE 90 mg/dL (70-99); MAGNESIUM 1.8 mg/dl (1.3-2.7); POTASSIUM 3.5 MEQ/L (3.7-5.4); SAMPLE HEMOLYSIS CHECK 0; SAMPLE ICTERIC CHECK 0; SAMPLE LIPEMIA CHECK 0; SODIUM 137 MEQ/L (136-147); UREA NITROGEN (BUN) 18 mg/dL (9-23)
[2017-05-19 08:41] VITALS: BP 160/78
[2017-05-19 09:03] LABS: HEMATOCRIT 28.8 % (38.0-50.0); MCV 87.3 FL (86-99)
[2017-05-19 11:33] LABS: POINT-OF-CARE METER ID UU13113725
[2017-05-19 15:58] LABS: POINT-OF-CARE METER ID UU13113725
[2017-05-19 16:06] VITALS: BP 153/75
[2017-05-19 21:39] LABS: POINT-OF-CARE METER ID UU13113725
[2017-05-20 05:52] LABS: EOSINOPHIL (%) 2.4 % (0-5); EOSINOPHIL COUNT 0.1 K/uL (0-0.3); HEMATOCRIT 30.5 % (38.0-50.0); IMMATURE GRANULOCYTE (%) 1.2 % (0.0-0.7); IMMATURE GRANULOCYTE COUNT 0.1 K/uL; INSTRUMENT ABS NEUTROPHIL CT 4.4 K/uL; LYMPHOCYTE COUNT 0.7 K/uL (1.0-2.8); MCH 29.1 PG (29.0-34.0); MCHC 33.4 G/DL (30.0-36.0); MCV 86.9 FL (86-99); MONOCYTE (%) 9.2 % (3-12); MONOCYTE COUNT 0.5 K/uL (0-0.8); NEUTROPHIL (%) 74.3 % (45-76); NEUTROPHIL COUNT 4.4 K/uL (1.8-6.4); PLATELET COUNT 93 K/uL (156-360); RBC DIS.WIDTH-CV 16.5 % (11.8-14.6); RBC DIS.WIDTH-SD 50.9 % (39-53); WHITE BLOOD COUNT 5.9 K/uL (4.1-10.2)
[2017-05-20 05:57] LABS: RED BLOOD COUNT 3.51 M/uL (4.00-5.50)
[2017-05-20 06:13] LABS: POINT-OF-CARE METER ID UU13113725
[2017-05-20 06:23] LABS: ALKALINE PHOSPHATASE 64 IU/L (3-129); ANION GAP 6 MEQ/L (2-14); CHLORIDE 103 MEQ/L (99-109); DIRECT BILIRUBIN 0.1 mg/dL (0.0-0.3); GLUCOSE 92 mg/dL (70-99); MAGNESIUM 1.8 mg/dl (1.3-2.7); POTASSIUM 3.7 MEQ/L (3.7-5.4); SAMPLE HEMOLYSIS CHECK 0; SAMPLE ICTERIC CHECK 0; SAMPLE LIPEMIA CHECK 0; SODIUM 135 MEQ/L (136-147); TOTAL BILIRUBIN 0.3 MG/DL (0.0-1.0); TRIGLYCERIDES 197 MG/DL (Normal: <150); UREA NITROGEN (BUN) 23 mg/dL (9-23)
[2017-05-20 06:24] LABS: GFR ESTIMATE (CALCULATED) 14 mL/min/
[2017-05-20 07:43] VITALS: BP 118/72
[2017-05-20 16:13] LABS: POINT-OF-CARE METER ID UU13113774
[2017-05-20 16:59] VITALS: BP 120/70
[2017-05-20 21:40] LABS: POINT-OF-CARE METER ID UU13113725
[2017-05-21 01:53] VITALS: BP 115/59
[2017-05-21 06:10] LABS: POINT-OF-CARE METER ID UU13113774
[2017-05-21 06:16] LABS: EOSINOPHIL (%) 2.3 % (0-5); EOSINOPHIL COUNT 0.1 K/uL (0-0.3); HEMATOCRIT 28.5 % (38.0-50.0); IMMATURE GRANULOCYTE (%) 2.1 % (0.0-0.7); IMMATURE GRANULOCYTE COUNT 0.1 K/uL; INSTRUMENT ABS NEUTROPHIL CT 2.7 K/uL; LYMPHOCYTE COUNT 0.8 K/uL (1.0-2.8); MCH 28.9 PG (29.0-34.0); MCHC 32.6 G/DL (30.0-36.0); MCV 88.5 FL (86-99); MEAN PLAT.VOLUME 9.9 uM^3 (9.0-12.4); MONOCYTE (%) 12.9 % (3-12); MONOCYTE COUNT 0.6 K/uL (0-0.8); NEUTROPHIL (%) 63.7 % (45-76); NEUTROPHIL COUNT 2.7 K/uL (1.8-6.4); PLATELET COUNT 85 K/uL (156-360); RBC DIS.WIDTH-CV 16.9 % (11.8-14.6); RBC DIS.WIDTH-SD 53.3 % (39-53); RED BLOOD COUNT 3.22 M/uL (4.00-5.50); WHITE BLOOD COUNT 4.3 K/uL (4.1-10.2)
[2017-05-21 06:45] LABS: ANION GAP 8 MEQ/L (2-14); CHLORIDE 106 MEQ/L (99-109); GLUCOSE 87 mg/dL (70-99); MAGNESIUM 1.9 mg/dl (1.3-2.7); POTASSIUM 3.9 MEQ/L (3.7-5.4); PREALBUMIN 11.9 mg/dL (10-40); SAMPLE HEMOLYSIS CHECK 0; SAMPLE ICTERIC CHECK 0; SAMPLE LIPEMIA CHECK 0; SODIUM 139 MEQ/L (136-147); UREA NITROGEN (BUN) 13 mg/dL (9-23)
[2017-05-21 06:50] VITALS: BP 130/76
[2017-05-21 06:51] LABS: GFR ESTIMATE (CALCULATED) 20 mL/min/
[2017-05-21 11:34] LABS: POINT-OF-CARE METER ID UU13113725
[2017-05-21 16:00] VITALS: BP 126/71
[2017-05-21 16:57] LABS: POINT-OF-CARE METER ID UU13113725
[2017-05-21 21:47] LABS: POINT-OF-CARE METER ID UU13113774
[2017-05-22 00:25] VITALS: BP 120/80
[2017-05-22 00:40] VITALS: BP 120/80
[2017-05-22 06:08] LABS: POINT-OF-CARE METER ID UU13113774
[2017-05-22 06:37] LABS: ANION GAP 6 MEQ/L (2-14); CHLORIDE 108 MEQ/L (99-109); GLUCOSE 87 mg/dL (70-99); MAGNESIUM 1.9 mg/dl (1.3-2.7); SAMPLE HEMOLYSIS CHECK 0; SAMPLE ICTERIC CHECK 0; SAMPLE LIPEMIA CHECK 0; SODIUM 140 MEQ/L (136-147); UREA NITROGEN (BUN) 10 mg/dL (9-23)
[2017-05-22 06:39] LABS: GFR ESTIMATE (CALCULATED) 24 mL/min/
[2017-05-22 08:00] VITALS: BP 129/81
[2017-05-22 09:53] LABS: POINT-OF-CARE METER ID UU13113774
[2017-05-22 11:33] LABS: POINT-OF-CARE METER ID UU13113725
[2017-05-22 15:42] LABS: POINT-OF-CARE METER ID UU13113725
[2017-05-22 15:57] VITALS: BP 141/80
[2017-05-22 21:23] LABS: ADD MIUA? YES; BILIRUBIN NEGATIVE; BLOOD SMALL; GLUCOSE (STRIP) NEGATIVE; KETONES NEGATIVE; LEUKOCYTES LARGE; NITRITE NEGATIVE; PROTEIN (STRIP) 100; SPECIFIC GRAVITY 1.005 (1.000-1.030); UROBILINOGEN 0.2 MG/DL (0.2-1.0)
[2017-05-22 21:30] LABS: COLOR YELLOW ((YELLOW))
[2017-05-22 21:53] LABS: POINT-OF-CARE METER ID UU13113725
[2017-05-22 21:59] LABS: RED BLOOD CELLS 0-5 /HPF (0-5); WHITE BLOOD CELLS TNTC /HPF (0-5)
[2017-05-22 22:00] LABS: BACTERIA 3+ /HPF; CASTS PRESENT /LPF; CRYSTALS NONE SEEN; EPITHELIAL CELLS 1+ /HPF; HYALINE CASTS RARE /LPF; MUCUS NONE SEEN /LPF; UCUL ADDED? YES
[2017-05-23 00:39] VITALS: BP 138/89
[2017-05-23 05:56] LABS: POINT-OF-CARE METER ID UU13113725
[2017-05-23 07:21] VITALS: BP 132/76
[2017-05-23 08:44] LABS: EOSINOPHIL (%) 2.5 % (0-5); EOSINOPHIL COUNT 0.2 K/uL (0-0.3); HEMATOCRIT 29.7 % (38.0-50.0); IMMATURE GRANULOCYTE (%) 1.2 % (0.0-0.7); IMMATURE GRANULOCYTE COUNT 0.1 K/uL; MCH 28.7 PG (29.0-34.0); MCHC 31.6 G/DL (30.0-36.0); MCV 90.5 FL (86-99); MEAN PLAT.VOLUME 10.6 uM^3 (9.0-12.4); MONOCYTE (%) 9.8 % (3-12); MONOCYTE COUNT 0.6 K/uL (0-0.8); NEUTROPHIL (%) 68.5 % (45-76); RBC DIS.WIDTH-CV 17.9 % (11.8-14.6); RBC DIS.WIDTH-SD 55.4 % (39-53); RED BLOOD COUNT 3.28 M/uL (4.00-5.50); WHITE BLOOD COUNT 5.9 K/uL (4.1-10.2)
[2017-05-23 08:47] LABS: PLATELET COUNT 114 K/uL (156-360)
[2017-05-23 09:16] LABS: ANION GAP 7 MEQ/L (2-14); CHLORIDE 106 MEQ/L (99-109); GLUCOSE 101 mg/dL (70-99); MAGNESIUM 1.9 mg/dl (1.3-2.7); POTASSIUM 4.2 MEQ/L (3.7-5.4); SAMPLE HEMOLYSIS CHECK 0; SAMPLE ICTERIC CHECK 0; SAMPLE LIPEMIA CHECK 0; SODIUM 137 MEQ/L (136-147); UREA NITROGEN (BUN) 17 mg/dL (9-23)
[2017-05-23 09:18] LABS: GFR ESTIMATE (CALCULATED) 17 mL/min/
[2017-05-23 12:17] LABS: POINT-OF-CARE METER ID UU13113725
[2017-05-23 16:28] LABS: POINT-OF-CARE METER ID UU13113725
[2017-05-23 16:50] VITALS: BP 136/72
[2017-05-23 21:39] LABS: POINT-OF-CARE METER ID UU13113725
[2017-05-24 00:09] VITALS: BP 140/80
[2017-05-24 05:51] LABS: HEMATOCRIT 30.9 % (38.0-50.0); MCH 28.4 PG (29.0-34.0); MCHC 31.4 G/DL (30.0-36.0); MCV 90.4 FL (86-99); MEAN PLAT.VOLUME 10.6 uM^3 (9.0-12.4); PLATELET COUNT 123 K/uL (156-360); RBC DIS.WIDTH-CV 18.6 % (11.8-14.6); RBC DIS.WIDTH-SD 55.3 % (39-53); RED BLOOD COUNT 3.42 M/uL (4.00-5.50); WHITE BLOOD COUNT 5.3 K/uL (4.1-10.2)
[2017-05-24 06:18] LABS: ANION GAP 7 MEQ/L (2-14); CHLORIDE 107 MEQ/L (99-109); GFR ESTIMATE (CALCULATED) 23 mL/min/; GLUCOSE 94 mg/dL (70-99); MAGNESIUM 1.9 mg/dl (1.3-2.7); POTASSIUM 4.2 MEQ/L (3.7-5.4); SAMPLE HEMOLYSIS CHECK 0; SAMPLE ICTERIC CHECK 0; SAMPLE LIPEMIA CHECK 0; SODIUM 137 MEQ/L (136-147); UREA NITROGEN (BUN) 12 mg/dL (9-23)
[2017-05-24 06:54] LABS: POINT-OF-CARE METER ID UU13113725
[2017-05-24 06:55] VITALS: BP 126/82
[2017-05-24 11:39] LABS: POINT-OF-CARE METER ID UU13113725
[2017-05-24 15:00] VITALS: BP 135/81
[2017-05-24] MEDS ORDERED: MITRAZOL 2% CRE45 GM TP (15:09)
[2017-05-24] MEDS ORDERED: ULTRAM50 MG PO (15:11)
[2017-05-24] MEDS ORDERED: MYCELEX10 MG MM (15:11)
[2017-05-24 16:32] LABS: POINT-OF-CARE METER ID UU13113725
[2017-05-24 21:38] LABS: POINT-OF-CARE METER ID UU13113774
[2017-05-25 00:49] VITALS: BP 120/70
[2017-05-25 01:47] LABS: POINT-OF-CARE METER ID UU13113725
[2017-05-25 06:11] LABS: POINT-OF-CARE METER ID UU13113725
[2017-05-25 08:01] LABS: EOSINOPHIL (%) 3.3 % (0-5); EOSINOPHIL COUNT 0.2 K/uL (0-0.3); HEMATOCRIT 29.2 % (38.0-50.0); IMMATURE GRANULOCYTE (%) 0.4 % (0.0-0.7); INSTRUMENT ABS NEUTROPHIL CT 3.7 K/uL; LYMPHOCYTE COUNT 0.8 K/uL (1.0-2.8); MCH 29.7 PG (29.0-34.0); MCHC 32.2 G/DL (30.0-36.0); MCV 92.4 FL (86-99); MEAN PLAT.VOLUME 10.4 uM^3 (9.0-12.4); MONOCYTE (%) 8.1 % (3-12); MONOCYTE COUNT 0.4 K/uL (0-0.8); NEUTROPHIL (%) 71.6 % (45-76); NEUTROPHIL COUNT 3.7 K/uL (1.8-6.4); PLATELET COUNT 141 K/uL (156-360); RBC DIS.WIDTH-CV 19.2 % (11.8-14.6); RED BLOOD COUNT 3.16 M/uL (4.00-5.50); WHITE BLOOD COUNT 5.2 K/uL (4.1-10.2)
[2017-05-25 08:12] LABS: ANION GAP 8 MEQ/L (2-14); CHLORIDE 104 MEQ/L (99-109); MAGNESIUM 2.1 mg/dl (1.3-2.7); POTASSIUM 4.1 MEQ/L (3.7-5.4); SAMPLE HEMOLYSIS CHECK 0; SAMPLE ICTERIC CHECK 0; SAMPLE LIPEMIA CHECK 0; SODIUM 134 MEQ/L (136-147)
[2017-05-25 08:20] LABS: GFR ESTIMATE (CALCULATED) 16 mL/min/; GLUCOSE 133 mg/dL (70-99)
[2017-05-25 08:21] LABS: UREA NITROGEN (BUN) 21 mg/dL (9-23)
[2017-05-25 11:48] VITALS: BP 112/64
[2017-05-25 11:56] LABS: POINT-OF-CARE METER ID UU13113774
[2017-05-25] MEDS ORDERED: BACTRIM,SEPT1 TABLET PO (13:42)
[2017-05-25] MEDS ORDERED: [UNRECOGNIZED DRUG - OTHER] MM (13:50)
[2017-05-25] MEDS ORDERED: VANCOCIN HCL125 MG PO (14:06)
== END 2017-05-25 15:37 | disposition home or self-care (01) | DRG 919 ==
LOC: EME 13:28 → EDOF 18:54 → 5EAST 18:54 → ENRESERV 18:57 → CANRESERV 19:01 → ENRESERV 19:49 → 5EAST 20:05
PROVIDERS: Emergency Medicine; Family Medicine; Hospitalist; Internal Medicine; Internal Medicine Nephrology; Physician Assistant; Student in an Organized Health Care Education/Training Program
PROC: 3E1M39Z Irrigation of Peritoneal Cavity using Dialysate, Percutaneous Approach (ICD-10-PCS; 2017-05-09)
PROC: 0DB98ZX Excision of Duodenum, Via Natural or Artificial Opening Endoscopic, Diagnostic (ICD-10-PCS; principal; 2017-05-13)
PROC: 0DB68ZX Excision of Stomach, Via Natural or Artificial Opening Endoscopic, Diagnostic (ICD-10-PCS; principal; 2017-05-13)
PROC: 3E1M39Z Irrigation of Peritoneal Cavity using Dialysate, Percutaneous Approach (ICD-10-PCS; 2017-05-15)
PROC: 5A1D70Z Performance of Urinary Filtration, Intermittent, Less than 6 Hours Per Day (ICD-10-PCS; 2017-05-18)
PROC: 30233N1 Transfusion of Nonautologous Red Blood Cells into Peripheral Vein, Percutaneous Approach (ICD-10-PCS; 2017-05-18)
PROC: 02H633Z Insertion of Infusion Device into Right Atrium, Percutaneous Approach (ICD-10-PCS; 2017-05-19)
DX: T85.611A Breakdown (mechanical) of intraperitoneal dialysis catheter, initial encounter (principal); E43 Unspecified severe protein-calorie malnutrition; N18.6 End stage renal disease; R17 Unspecified jaundice; B37.0 Candidal stomatitis; A04.72 Enterocolitis due to Clostridium difficile, not specified as recurrent; Z68.1 Body mass index [BMI] 19.9 or less, adult; E03.9 Hypothyroidism, unspecified; I12.0 Hypertensive chronic kidney disease with stage 5 chronic kidney disease or end stage renal disease; D69.6 Thrombocytopenia, unspecified; N25.81 Secondary hyperparathyroidism of renal origin; F32.9 Major depressive disorder, single episode, unspecified; F41.9 Anxiety disorder, unspecified; I25.10 Atherosclerotic heart disease of native coronary artery without angina pectoris; K81.9 Cholecystitis, unspecified; E78.5 Hyperlipidemia, unspecified; M10.9 Gout, unspecified; E86.9 Volume depletion, unspecified; K29.60 Other gastritis without bleeding; K20.9 Esophagitis, unspecified; K29.40 Chronic atrophic gastritis without bleeding; Y71.2 Prosthetic and other implants, materials and accessory cardiovascular devices associated with adverse incidents; R26.2 Difficulty in walking, not elsewhere classified; R63.4 Abnormal weight loss; K22.4 Dyskinesia of esophagus; E89.0 Postprocedural hypothyroidism; E87.6 Hypokalemia; Y81.2 Prosthetic and other implants, materials and accessory general- and plastic-surgery devices associated with adverse incidents; E16.2 Hypoglycemia, unspecified; E83.51 Hypocalcemia; D63.1 Anemia in chronic kidney disease; K21.0 Gastro-esophageal reflux disease with esophagitis; E87.70 Fluid overload, unspecified; D50.9 Iron deficiency anemia, unspecified; R30.0 Dysuria; E87.5 Hyperkalemia; E83.39 Other disorders of phosphorus metabolism; Z95.1 Presence of aortocoronary bypass graft; Z92.3 Personal history of irradiation; Z79.82 Long term (current) use of aspirin; Z85.46 Personal history of malignant neoplasm of prostate; Z87.440 Personal history of urinary (tract) infections; Z90.49 Acquired absence of other specified parts of digestive tract; Z99.2 Dependence on renal dialysis; Z82.49 Family history of ischemic heart disease and other diseases of the circulatory system; I25.2 Old myocardial infarction; Z79.899 Other long term (current) drug therapy; Z87.891 Personal history of nicotine dependence; Z87.442 Personal history of urinary calculi
CPT/HCPCS: 71010; 71020; 74000; 80048; 80053; 80069; 80076; 81003; 82248; 82306; 82330; 82607; 82948; 83540; 83605; 83690; 83735; 83880; 83970; 84100; 84134; 84439; 84443; 84478; 84481; 84484; 84540; 84630 90; 85014; 85018; 85025; 85027; 85610; 85730; 86704; 86706; 86803; 86850; 86900; 86901; 86920; 87070; 87086; 87205; 87340; 87493; 88305; 88342 TC; 89051; 92526 GN; 92610 GN; 94640; 94799; 97530 GO; 97530 GP; 99202; 99281; 99285; C1753; C1788; C1894; C9113; J0636; J0690; J0881; J1644; J1756; J2250; J2270; J2405; J2765; J3010; J3480; J7030; J7040; J7050; P9016; P9047; S0030

== ENCOUNTER → 2017-10-08 | Outpatient (CLI) | payer OTHER ==
[~2017-10-08] MED LIST changes: +ASCORBIC ACID500 M3 PO; +BACTRIM,SEPT1 TABLET PO; +DAILY VITE1 EAC1 PO; +LO-DOSE ASPIRIN81 M1 PO; +MITRAZOL 2% CRE45 GM TP; +MYCELEX10 MG MM; +SYNTHROID75 MCG PO; +ULTRAM50 MG PO; +VANCOCIN HCL125 MG PO; +VITAMIN D31000 UNI2 PO; +ZINC50 M1 PO; +ZOFRAN ODT8 MG PO; +[UNRECOGNIZED DRUG - OTHER] MM
== END | disposition home or self-care (01) ==
LOC: AMB 08:30
DX: A04.71 Enterocolitis due to Clostridium difficile, recurrent (principal); I25.10 Atherosclerotic heart disease of native coronary artery without angina pectoris; E03.9 Hypothyroidism, unspecified; C61 Malignant neoplasm of prostate; N18.6 End stage renal disease; Z99.2 Dependence on renal dialysis; Z79.82 Long term (current) use of aspirin; Z88.6 Allergy status to analgesic agent
CPT/HCPCS: 71045

== ENCOUNTER 2017-11-06 09:56 | Day surgery (SDC) | payer OTHER ==
[~2017-11-06] VITALS: Ht 170.2 cm; Wt 59.0 kg
[~2017-11-06 09:56] MED LIST changes: +CARVEDILOL3.125 MG PO; +MELATONIN1 MG PO; +PROCARDIA20 MG PO; +TYLENOL PM EX-1 EACH PO
[2017-11-06 10:32] LABS: HEMATOCRIT 38.1 % (38.0-50.0); HEMOGLOBIN 11.8 G/DL (12.5-16.6); MCH 29.8 PG (29.0-34.0); MCV 96.2 FL (86-99); PLATELET COUNT 196 K/uL (156-360); RBC DIS.WIDTH-CV 16.7 % (11.8-14.6); RBC DIS.WIDTH-SD 58.8 % (39-53); RED BLOOD COUNT 3.96 M/uL (4.00-5.50); WHITE BLOOD COUNT 5.4 K/uL (4.1-10.2)
[2017-11-06 11:01] LABS: CHLORIDE 98 MEQ/L (99-109); CREATININE 4.3 MG/DL (0.6-1.3); GFR ESTIMATE (CALCULATED) 14 mL/min/ (58.99-99999); GLUCOSE 101 mg/dL (70-99); SODIUM 140 MEQ/L (136-147); UREA NITROGEN (BUN) 52 mg/dL (9-23)
[2017-11-06 11:45] VITALS: BP 171/82
[2017-11-06] MEDS ORDERED: NORCO 5/3251 TABLET PO (16:28)
[2017-11-06 19:17] VITALS: BP 144/67
[2017-11-06 19:59] VITALS: BP 156/67
[2017-11-06 20:40] VITALS: BP 154/69
== END 2017-11-06 20:50 | disposition home or self-care (01) ==
LOC: SDC 09:56
PROVIDERS: Surgery
DX: T85.611A Breakdown (mechanical) of intraperitoneal dialysis catheter, initial encounter (principal); I12.0 Hypertensive chronic kidney disease with stage 5 chronic kidney disease or end stage renal disease; N18.6 End stage renal disease; Z99.2 Dependence on renal dialysis; I25.10 Atherosclerotic heart disease of native coronary artery without angina pectoris; I25.2 Old myocardial infarction; F41.1 Generalized anxiety disorder; N25.81 Secondary hyperparathyroidism of renal origin; D53.9 Nutritional anemia, unspecified; E03.9 Hypothyroidism, unspecified; Z95.1 Presence of aortocoronary bypass graft; Z95.5 Presence of coronary angioplasty implant and graft; Z79.82 Long term (current) use of aspirin; Z85.46 Personal history of malignant neoplasm of prostate
CPT/HCPCS: 80048; 85027; 87641; 93005; C1768; J0690; J1170; J1644; J2720; J3010; J7050; S0020

== ENCOUNTER → 2017-12-04 | Outpatient (CLI) | payer OTHER | END | disposition home or self-care (01) | LOC: AMB 08:30 | PROC: 05PY03Z Removal of Infusion Device from Upper Vein, Open Approach (ICD-10-PCS; principal; 2017-12-04) | DX: N18.6 End stage renal disease (principal) ==